=== PATIENT | male | born 1950 | race Caucasian/White ===

== ENCOUNTER → 2016-12-02 | Day surgery (SDC) | payer BC ==
[~2016-12-02] MED LIST: ALLOPURINOL300 MG PO; AMLODIPINE BESY10 MG PO; ASPIRIN81 M2 PO; CALCIUM PO; HYDROCHLOROTHIA25 MG PO; LISINOPRIL20 MG PO; MAGNESIUM250 M1 PO; MULTICHEW1 TAB.CHEW PO; [UNRECOGNIZED DRUG - OTHER] PO
--- NOTE | ~2016-12-02 | OR ---
Unit #: [id number] #: [id number] Patient: GEORGIE GORDON [id number] [address] [id number] O MR#: [id number] NAME: GEORGIE GORDON ROOM: Date of Procedure: 12/02/2016 Admission Date: 12/02/2016 Surgeon: Denver Rowe M.D. : 1950 Attending Physician: Denver Rowe M.D. Referring Physician: Denver Rowe M.D. Primary Care Physician: Amandeep Mosqueda Jr., M.D. OPERATIVE REPORT PREOPERATIVE DIAGNOSIS Screening colonoscopy. POSTOPERATIVE DIAGNOSES 1. Normal colonoscopy. 2. Poor prep. PROCEDURE PERFORMED Colonoscopy to cecum. ANESTHESIA IV sedation. COMPLICATIONS None. INDICATIONS The patient is a 66-year-old gentleman, who has not had a colonoscopy for 12 years. DESCRIPTION OF PROCEDURE The patient was taken to the operating theater and placed in left lateral decubitus position. Digital rectal exam was normal. Colonoscope was passed under direct vision and navigated to the cecum. The patient had a relatively poor prep. I was able to exclude any obvious neoplastic lesions. I saw no diverticula, colitis, or other findings. He tolerated the procedure well and sent to recovery room in good condition. Dictated by... Panda Hargrove/carlosl TD: 12/02/2016 19:39 JOB #: [id number] Unit #: [id number] #: [id number] Patient: GEORGIE GORDON OPERATIVE REPORT Page 1 of 1 X Denver Rowe MD X PROCEDURE OPERATIVE NOTE
== END | disposition home or self-care (01) ==
LOC: COPS 11:09
PROVIDERS: Surgery
PROC: 0DJD8ZZ Inspection of Lower Intestinal Tract, Via Natural or Artificial Opening Endoscopic (ICD-10-PCS; principal; 2016-12-02 14:00)
DX: Z12.11 Encounter for screening for malignant neoplasm of colon (principal); E66.01 Morbid (severe) obesity due to excess calories; Z68.36 Body mass index [BMI] 36.0-36.9, adult; Z72.4 Inappropriate diet and eating habits; I10 Essential (primary) hypertension; M10.9 Gout, unspecified; G47.30 Sleep apnea, unspecified; Z79.899 Other long term (current) drug therapy; Z98.890 Other specified postprocedural states; Z98.84 Bariatric surgery status
CPT/HCPCS: J2250